=== PATIENT | female | born 1960 | race Two or more races ===

== ENCOUNTER 2022-05-23 16:46 | Emergency (ER) | payer MEDICAID ==
[~2022-05-23] VITALS: Ht 154.9 cm; Wt 69.4 kg
--- NOTE | 2022-05-23 17:00 | NUR ---
pt in bed C/O back pain
[2022-05-23] MEDS ORDERED: KETOROLAC TROMETHAMINE INJ 60 MG/2 ML VIAL IM ONE (17:30)
[2022-05-23] MEDS ORDERED: METHOCARBAMOL (500MG) 500 MG TABLET PO ONE (17:30)
--- NOTE | 2022-05-23 17:31 | NUR ---
pt picked up by radiology
[2022-05-23] MEDS ORDERED: KETOROLAC TROMETHAMINE INJ 30 MG/ML VIAL ONE (17:50)
[2022-05-23] MEDS ORDERED: METHOCARBAMOL (500MG) 500 MG TABLET ONE (17:51)
[2022-05-23] MEDS ORDERED: IBUP-1953 PO (19:04)
[2022-05-23] MEDS ORDERED: METH-647 PO (19:04)
--- NOTE | 2022-05-23 19:46 | NUR ---
Patient discharged to home in stable condition. Written and verbal after care instructions given. Patient verbalizes understanding of instruction.
[2022-05-23 21:07] VITALS: BP 115/75
== END 2022-05-23 21:08 | disposition home or self-care (01) ==
LOC: ER 16:46
DX: S16.1XXA Strain of muscle, fascia and tendon at neck level, initial encounter (principal); S39.012A Strain of muscle, fascia and tendon of lower back, initial encounter; S40.012A Contusion of left shoulder, initial encounter; V89.2XXA Person injured in unspecified motor-vehicle accident, traffic, initial encounter; Y93.89 Activity, other specified; Y92.89 Other specified places as the place of occurrence of the external cause; Y99.8 Other external cause status
CPT/HCPCS: 99285; 72125; 96372; 73030; 72131; J1885